=== PATIENT | male | born 1955 | race Caucasian/White ===

== ENCOUNTER 2020-03-09 01:43 | Outpatient (CLI) | payer OTHER, SELFPAY ==
[2020-03-09 17:56] LABS: SARS-CoV-2 RNA PCR Negative
== END 2020-03-09 01:44 | disposition home or self-care (01) ==
LOC: ANHCOVIDDT 01:44
PROVIDERS: PCP Family Medicine; Visit Provider Plastic Surgery
DX: Z01.818 Encounter for other preprocedural examination (principal); Z11.59 Encounter for screening for other viral diseases
CPT/HCPCS: 87635; C9803; U0003

== ENCOUNTER 2020-03-11 02:17 | Day surgery (SDC) | payer OTHER, SELFPAY ==
[2020-03-01 14:56] VITALS: BMI 37.9
--- NOTE | 2020-03-11 00:35 | HP_ITS ---
DATE OF SERVICE: 03/11/2020 PREOPERATIVE DIAGNOSIS: Basal cell carcinoma of the right nasal tip and neoplasm of unspecified behavior of the right upper forehead. HISTORY: The patient is 64, he was referred by with 2 biopsies, 1 is from the right nasal tip which is indeed a basal cell carcinoma, the 2nd was from the right upper forehead incorrectly stated tip in other places. However, that biopsy was inconclusive due to the nature of the tissue received by the pathologist. The lesion on the forehead is in the 's peak on the right and roughly 2 cm in diameter slightly ulcerated mass consistent with basal cell carcinoma. The biopsy site on the nasal tip is evident, tumor is not. The plan is for excision of each of these with frozen section on each possible local tissue transfer or full-thickness skin graft to the nose. PAST MEDICAL HISTORY: ALLERGIES: HE HAS NO KNOWN ALLERGY TO MEDICATION. MEDICATIONS: His current medicines include metformin, lisinopril, lovastatin, fluorouracil 5% cream. He lists no prior surgeries. He sees no other specialists. REVIEW OF SYSTEMS: Indicates he is a nonsmoker. He is a type 2 diabetic. FAMILY HISTORY: Noncontributory. SOCIAL HISTORY: He lives in [place]. He is retired spouse contact. PHYSICAL EXAMINATION: GENERAL: He is alert, cooperative, adult male. He is 5 feet 7 inches, weighs 235 pounds. He is in no acute distress. HEENT: Remarkable for the site at the right 's peak and little biopsy site on his nose as described above. There is no palpable adenopathy. CHEST: Clear to auscultation. HEART: Regular rate and rhythm by palpation. ABDOMEN: Soft, nontender. EXTREMITIES: Normal. ASSESSMENT: Basal cell carcinoma of the right nasal tip by biopsy and neoplasm of unspecified behavior of the right upper forehead. PLAN: Excision of each with frozen section and local tissue transfer or full-thickness skin graft for the nose. Under MAC anesthetic, the patient is aware there will be scars, he may require a skin graft. There may be bruising, numbness, wound infection, and other possible complications. He would like to proceed. D I MT: Eulalia WALLS
[2020-03-11 07:55] VITALS: BP 142/84; PULSE 81; RESP 16; TEMP 36.4; O2SAT 100
[2020-03-11] MEDS: LACTATED RINGERS 1,000 ML 30 ML IV CONT ×2 (08:00→11:42)
[2020-03-11 08:05] LABS: Glucose Point of Care 147 (65-105)
--- NOTE | 2020-03-11 08:44 | WPDANESEPPF ---
Anes - Initial Pre Proc Eval Procedure: Operation Date: 03/11/20 09:30 Proposed Procedures p Excision Basal Cell Carcinoma Right Nasal Tip With Frozen Section, Possible Local Tissue Transfer Or Full Thickness Skin Graft, Excision Neoplasm Unspecified Behavior Right Upper Forehead With Frozen Section, Possible Local Tissue Transfer Or Full Thickness Skin Graft - Davonte Johnston MD Date/Time: 03/11/20 08:44 Surgeon: Davonte Johnston MD Pre Op Diagnosis: BCC Rt Nasal Tip/Neoplasm Unspec Behav Rt Forehead Patient Data Age: 64 Gender: M Height: 5 ft 6 in Weight: 105.1 kg Allergies Allergy/AdvReac Type Severity Reaction Status Date / Time No Known Allergies Allergy Verified 03/11/20 07:37 Home Medications Medication Instructions Recorded Confirmed Type lisinopril 10 mg PO DAILY 03/01/20 03/11/20 History lovastatin 20 mg PO QPM 03/01/20 03/11/20 History metformin 1,000 mg PO DAILY 03/01/20 03/11/20 History metformin 500 mg PO HS 03/01/20 03/11/20 History Laboratory Tests 03/11/20 08:03 POC Capillary Glucose 147 mg/dl H mg/dl (65-105) Patient hx anesthesia problems: none Family hx anesthesia problems: none PMFSH Past Medical History Medical History (Updated 03/11/20 @ 08:32 by Aidan Llanes MD) Diabetes Hyperlipidemia Hypertension Social History Social History Smoking packs per day: 2 Smoking cigarettes per day: 40.0 Years smoked: 15 Smoking pack-years: 30.00 Smoking status: Former smoker Additional smoking assessment comments: QUIT 1999 Spiritual care concerns: No Anes - Eval Final PreProcedure Day of Procedure 03/11/20 08:44 Patient weight: obese Heart: regular rate and rhythm Lungs: clear to auscultation Airway: Mallampati scale class II Neurological: alert and oriented Last oral intake: >/= 8 hours ASA classification: III Emergent: no Anesthetic plan: proceed Anesthesia type and monitoring: general (may use LMA) GIVS and standard monitoring Informed Consent: The patient's anesthetic plan and its attendant risks and benefits were discussed with the patient/family/POA. Questions were solicited and answers provided to the satisfaction of the patient/family/POA.
--- NOTE | 2020-03-11 09:35 | SUR.PREOP ---
Up to bathroom.
--- NOTE | 2020-03-11 09:39 | WPDHPUPDATE1 ---
History and Physical Update Update Date/Time: 03/11/20 09:39 History and Physical has been reviewed, including an updated exam of the patient. There are NO changes in the patient's condition. Risks, benefits, and alternatives have been discussed and questions answered. Patient agrees to proceed with procedure.
[2020-03-11] MEDS: LIDO 1%/EPINEPHRINE 1:100,000 20 ML VIAL INFILTRATE (09:58)
[2020-03-11 11:42] VITALS: BP 113/64; PULSE 70; RESP 12; O2SAT 96
--- NOTE | 2020-03-11 12:09 | PM.PROC ---
Procedure Note - Detailed Date of procedure: 03/11/20 Pre-op diagnosis: BCC Rt Nasal Tip/Neoplasm Unspec Behav Rt Forehead Post-op diagnosis: other (BCC of right nasal tip and BCC of right upper forehead.) Procedure performed: 1.5 cm excision of BCC of nasal tip with FS x 2 and FTSG 2.5 sq cm. 2.0 cm excision of BCC of right upper forehead with FS and complex repair 4.0 cm Anesthesia: GLMA Surgeon: Davonte Johnston MD Estimated blood loss (mL): 5 Drains: No Pathology: yes Complications: No immediate complications Condition: stable Disposition: same day
[2020-03-11 12:10] VITALS: BP 107/71; PULSE 100; RESP 16; O2SAT 94
[2020-03-11 12:40] VITALS: BP 113/63; PULSE 110; RESP 16
--- NOTE | 2020-03-11 20:29 | PM.PROC ---
Procedure Note - Detailed Date of procedure: 03/11/20 Pre-op diagnosis: BCC Rt Nasal Tip/Neoplasm Unspec Behav Rt Forehead Post-op diagnosis: other ( BASAL CELL CARCINOMA OF THE RIGHT NASAL TIP AND BASAL CELL CARCINOMA OF THE RIGHT UPPER FOREHEAD) Procedure performed: 1.5 CM EXCISION OF BASAL CELL CARCINOMA OF THE RIGHT NASAL TIP WITH FROZEN SECTION AND FULL-THICKNESS SKIN GRAFT 2 SQ CM 2 CM EXCISION OF BASAL CELL CARCINOMA THE RIGHT UPPER FOREHEAD WITH FROZEN SECTION AND COMPLEX REPAIR 4 CM Description of procedure: THE 2 SURGICAL SITES WERE MARKED ON THE PATIENT HE WAS IN THE HOLDING AREA. HE WAS TAKEN TO THE OPERATING ROOM WHERE HE WAS PLACED SUPINE ON THE OPERATING TABLE. A TIME-OUT WAS HELD AND CONFIRMED. HE WAS GIVEN A GENERAL ANESTHESIA. THE ENTIRE FACE AND NECK AREA WERE PREPPED AND DRAPED IN USUAL FASHION. THE 2 SITES WERE CAREFULLY EXAMINED HER LOUPE MAGNIFICATION AFTER WIPING WAY BETADINE EACH WAS MARKED FOR EXCISION. THE SITES WERE INFILTRATED WITH 1% LIDOCAINE WITH EPINEPHRINE. THE LESION FROM THE NOSE WAS TAKEN 1ST OF THE FAIRLY SHALLOW EXCISION OF SKIN WITH 15 BLADE. THE MOST SUPERIOR ASPECT WITH MARKED WITH A SUTURE AND THE SPECIMEN SENT TO PATHOLOGY. THE PATHOLOGIST REVEALED THAT THE DEEP MARGIN WAS POSITIVE. A 2ND SPECIMEN ENCOMPASSING THE ENTIRE BASE OF THE WOUND WAS SENT ALSO MARKED FOR ORIENTATION AND SUPERFICIAL SURFACE. PATHOLOGIST REPORTED THAT ALL MARGINS WERE FREE. THE SKIN GRAFT WAS HARVESTED FROM THE UPPER NECK BELOW THE RIGHT EAR WAS CAREFULLY DEFATTED AND INSET WITH 5 0 NYLON. THE DONOR SITE WAS TREATED WITH UNDERMINING OF THE EDGES AND CLOSURE WITH INTERRUPTED 3-0 VICRYL AND GLUE. THE 2ND SITE ON THE RIGHT UPPER FOREHEAD WAS EXCISED WITH A 15 BLADE JUST THROUGH THE SKIN SPARING SUBDERMAL STRUCTURES. THE SPECIMEN WAS MARKED WITH A SUTURE ON THE INFERIOR ASPECT WHERE THE ORBIT AND SENT FOR FROZEN SECTION. THE PATHOLOGIST REPORTED THAT THIS IS A BASAL CELL CARCINOMA AND ALL MARGINS WERE FREE. AT THIS WOUND WAS CLOSED WITH SUTURES. IT REQUIRED EXTENSIVE UNDERMINING IN ALL DIRECTIONS TO 2 CM OR MORE AND APPOSITION OF THE OPPOSING SIDES IN THE ORIENTATION DEMONSTRATING THE GREATEST LAXITY. STANDING CONES WERE REMOVED BOTH ENDS. THIS CLOSURE WAS ACCOMPLISHED WITH 3-0 VICRYL AND 6 0 RUNNING NYLON THIS PROCEDURE WAS TOLERATED WELL THE PATIENT IS DISCHARGED FROM THE OPERATING ROOM STABLE CONDITION. HE HAS A PRESCRIPTION FOR CEPHALEXIN 500 MG T.I.D. 12. AND HYDROCODONE/APAP 5/325. HE HAS INSTRUCTIONS IN WOUND CARE AND FOLLOW-UP Surgeon: Davonte Johnston MD
== END 2020-03-11 12:45 | disposition home or self-care (01) ==
PROVIDERS: PCP Family Medicine; Visit Provider Plastic Surgery
PROC: (CPT 11642; principal; 2020-03-11 09:30)
DX: C44.311 Basal cell carcinoma of skin of nose (principal); C44.319 Basal cell carcinoma of skin of other parts of face; I10 Essential (primary) hypertension; E78.5 Hyperlipidemia, unspecified; E11.9 Type 2 diabetes mellitus without complications; Z79.84 Long term (current) use of oral hypoglycemic drugs; Z87.891 Personal history of nicotine dependence; E66.9 Obesity, unspecified; Z68.37 Body mass index [BMI] 37.0-37.9, adult
CPT/HCPCS: 11642 ×2; 15260; 13132; 88305; 88331; 88332; A9270; J1100; J1170; J2250; J2370; J2405; J2704; J3010; J7120

== ENCOUNTER 2020-04-27 00:16 | Outpatient (CLI) | payer OTHER, SELFPAY ==
[2020-04-27 17:26] LABS: SARS-CoV-2 RNA PCR Negative
== END 2020-04-27 00:17 | disposition home or self-care (01) ==
LOC: ANHCOVIDDT 00:17
PROVIDERS: PCP Family Medicine; Visit Provider Plastic Surgery
DX: Z01.812 Encounter for preprocedural laboratory examination (principal); Z20.828 Contact with and (suspected) exposure to other viral communicable diseases
CPT/HCPCS: 87635; C9803; U0003

== ENCOUNTER 2020-04-29 00:32 | Day surgery (SDC) | payer OTHER, SELFPAY ==
[2020-04-16 15:33] VITALS: BMI 37.9
[2020-04-29] VITALS (8 sets, daily range): BP systolic 107–142; BP diastolic 73–92; PULSE 66–86; RESP 14–20; TEMP 36.1–36.7; O2SAT 95–100
[2020-04-29] MEDS: LACTATED RINGERS 1,000 ML 30 ML IV CONT ×2 (06:30→09:21)
--- NOTE | 2020-04-29 06:58 | WPDHPUPDATE1 ---
History and Physical Update Update Date/Time: 04/29/20 06:58 History and Physical has been reviewed, including an updated exam of the patient. There are NO changes in the patient's condition. Risks, benefits, and alternatives have been discussed and questions answered. Patient agrees to proceed with procedure.
[2020-04-29 07:11] LABS: Glucose Point of Care 145 (65-105)
--- NOTE | 2020-04-29 07:20 | WPDANESEPPF ---
Anes - Initial Pre Proc Eval Procedure: Operation Date: 04/29/20 07:30 Proposed Procedures p Excision Basal Cell Carcinoma Right Upper Lip with Frozen Section, Full Thickness Skin or Local Tissue Transfer, Excisional Biopsy Neoplasm Unspecified Behavior Upper Lip - Davonte Johnston MD Date/Time: 04/29/20 07:20 Surgeon: Davonte Johnsotn MD Pre Op Diagnosis: bcca right upper lip, neoplasm unspec behav up lip Patient Data Age: 65 Gender: M Height: 5 ft 6 in Weight: 102.8 kg Last Vital Signs Temp 36.7 C 04/29/20 07:00 Pulse 66 04/29/20 07:00 Resp 20 04/29/20 07:00 BP 142/92 H 04/29/20 07:00 Pulse Ox 99 04/29/20 07:00 Allergies Allergy/AdvReac Type Severity Reaction Status Date / Time No Known Allergies Allergy Verified 04/16/20 15:32 Home Medications Medication Instructions Recorded Confirmed Type lisinopril 10 mg PO DAILY 03/01/20 04/29/20 History lovastatin 20 mg PO QPM 03/01/20 04/29/20 History metformin 1,000 mg PO DAILY 03/01/20 04/29/20 History metformin 500 mg PO HS 03/01/20 04/29/20 History Laboratory Tests 04/29/20 06:57 POC Capillary Glucose 145 mg/dl H mg/dl (65-105) Patient hx anesthesia problems: none Family hx anesthesia problems: none PMFSH Past Medical History Medical History Diabetes Hyperlipidemia Hypertension Social History Social History Smoking packs per day: 2 Smoking cigarettes per day: 40.0 Years smoked: 15 Smoking pack-years: 30.00 Smoking status: Former smoker Tobacco type: cigarettes Additional smoking assessment comments: QUIT 1999 Additional living arrangements comments: [facility] [phone] Spiritual care concerns: No Anes - Eval Final PreProcedure Day of Procedure 04/29/20 07:20 Patient weight: obese Heart: regular rate and rhythm Lungs: decreased breath sounds Airway: Mallampati scale class II Neurological: alert and oriented Last oral intake: >/= 8 hours ASA classification: III Emergent: no Anesthetic plan: proceed Anesthesia type and monitoring: general GIVS and standard monitoring Informed Consent: The patient's anesthetic plan and its attendant risks and benefits were discussed with the patient/family/POA. Questions were solicited and answers provided to the satisfaction of the patient/family/POA.
[2020-04-29] MEDS: LIDO 1%/EPINEPHRINE 1:100,000 20 ML VIAL 8 ML INFILTRATE (07:29)
[2020-04-29] MEDS: BACITRACIN OINTMENT 15 GM TUBE 1 APPLIC TOPICAL (08:14)
--- NOTE | 2020-04-29 08:58 | SUR.OPER ---
EBL:5cc
--- NOTE | 2020-04-29 09:35 | PM.OP ---
Procedure Note - Brief Procedure Note - Brief Date of procedure: 04/29/20 Pre-op diagnosis: bcca right upper lip, neoplasm unspec behav up lip Post-op diagnosis: other (BCC of right upper lip at the sill. BCC left upper lip at the nasolabial fold.) Procedure performed: 1 cm excision of BCC of right upper lip at the sill with FS and Delfino. LTT 5.0 sq cm. 0.5 cm excision of BCC of right upper lip at nasolabial fold with FS and intermediate repair 1.0 cm. Anesthesia: GLMA Surgeon: Davonte Johnston MD Estimated blood loss (mL): 6 Drains: No Packing: No Pathology: yes Complications: No immediate complications Condition: stable Disposition: PACU
--- NOTE | 2020-04-29 09:39 | P.OP_ITS ---
Procedure Note - Detailed Date of procedure: 04/29/20 Pre-op diagnosis: bcca right upper lip, neoplasm unspec behav up lip Post-op diagnosis: other (1. Basal cell carcinoma of the right upper lip at the nasal labial fold. 2. Basal cell carcinoma of the right upper lip at the nasal sill.) Procedure performed: 1. 0.5 cm excision of basal cell carcinoma of the right upper lip at the nasal labial fold with FS and intermediate repair 1 cm. 2. 1 cm excision of basal cell carcinoma of the right upper lip at the nasal sill with frozen section and bilateral local tissue transfer total 5 sq cm. Description of procedure: The 2 sites were marked on the patient's upper lip in the holding area. He was taken to the operating room and placed supine on the operating table. A time-out was held and confirmed. He was given general anesthesia with an LMA intubation. The Face was prepped and draped in the usual fashion. Markings were made for excision of the to lesions. This area was widely infiltrated with 1% lidocaine with epinephrine. The smaller right upper lip lesion was excised 1st. It was marked with a suture for the point nearest the alar base and it was sent for frozen section. The larger lesion was excised and the superior aspect was marked as 12:00. Pathology indicated that both specimens were BCC and both were fully excised. Bilateral upper lip flaps were incised across the upper lip. The margins of the smaller wound were undermined with a 15 blade. The 2 flaps were advanced toward the midline and inset with 4-0 Vicryl and the skin was closed with the running 6 0 nylon. The small defect on the lateral lip was tailored to allow closure with the existing flap. The patient was discharged from the operating room in stable condition. He prescription tramadol 50 mg 10. . He has instructions in wound care and follow- up. Surgeon: Davonte Johnston MD
[2020-04-29 09:41] LABS: Glucose Point of Care 150 (65-105)
== END 2020-04-29 11:15 | disposition home or self-care (01) ==
PROVIDERS: PCP Family Medicine; Visit Provider Plastic Surgery
PROC: (CPT 14060; principal; 2020-04-29 07:30)
DX: C44.01 Basal cell carcinoma of skin of lip (principal); I10 Essential (primary) hypertension; E11.9 Type 2 diabetes mellitus without complications; E78.5 Hyperlipidemia, unspecified; Z79.84 Long term (current) use of oral hypoglycemic drugs; Z87.891 Personal history of nicotine dependence; E66.9 Obesity, unspecified; Z68.36 Body mass index [BMI] 36.0-36.9, adult
CPT/HCPCS: 14060; 11640; 12051; 87635; 88305; 88331; A9270; C9803; J2250; J2370; J2405; J2704; J3010; J7120; U0003